=== PATIENT | male | born 1950 | race Caucasian/White ===

== ENCOUNTER 2017-06-03 08:01 | Outpatient (CLI) | payer MEDICARE | END 2017-06-03 08:02 | disposition home or self-care (01) | LOC: BICMRI 08:01 | PROVIDERS: ATTEND Orthopaedic Surgery | DX: M75.101 Unspecified rotator cuff tear or rupture of right shoulder, not specified as traumatic (principal); M25.511 Pain in right shoulder; M62.511 Muscle wasting and atrophy, not elsewhere classified, right shoulder | CPT/HCPCS: 70210 ==

== ENCOUNTER 2024-11-25 10:11 | Outpatient (CLI) | payer MEDICARE | END 2024-11-25 10:12 | disposition home or self-care (01) | LOC: BICRAD 10:11 | PROVIDERS: ATTEND Internal Medicine Rheumatology | DX: M47.812 Spondylosis without myelopathy or radiculopathy, cervical region (principal) | CPT/HCPCS: 72050 ==

== ENCOUNTER 2024-12-21 14:43 | Outpatient (CLI) | payer MEDICARE | END 2024-12-21 14:44 | disposition home or self-care (01) | LOC: BICRAD 14:43 | PROVIDERS: ATTEND Family Medicine | DX: Z77.090 Contact with and (suspected) exposure to asbestos (principal) | CPT/HCPCS: 36415; 71046; 80053; 80061; 83036; 84443; 85025; G0103 ==